=== PATIENT | female | born 1985 | race Caucasian/White ===

== ENCOUNTER 2020-12-25 02:00 | Emergency (ER) | payer MEDICAID ==
[~2020-12-25] VITALS: Ht 157.5 cm; Wt 78.9 kg
[2020-12-25] MEDS ORDERED: TETANUS/DIPHTHERIA TOXOID [ADULT] 0.5 ML VIAL IM ONE (02:30)
[2020-12-25] MEDS ORDERED: CLINDAMYCIN 150 MG CAP PO ONE (02:30)
[2020-12-25 02:53] VITALS: BP 138/82
[2020-12-25] MEDS ORDERED: CLIN-141 PO (07:58)
[2020-12-25] MEDS ORDERED: KETO10TA2 PO (07:58)
== END 2020-12-25 04:23 | disposition left against medical advice (07) ==
LOC: EDH 02:00
DX: S91.331A Puncture wound without foreign body, right foot, initial encounter (principal); W26.8XXA Contact with other sharp object(s), not elsewhere classified, initial encounter; Y93.01 Activity, walking, marching and hiking; Y92.89 Other specified places as the place of occurrence of the external cause; Y99.8 Other external cause status
CPT/HCPCS: 90471; 90714